=== PATIENT | female | born 1965 | race Caucasian/White ===

== ENCOUNTER 2021-04-03 13:41 | Emergency (ER) | payer OTHER ==
[2021-04-03 13:52] VITALS: BP 174/79; PULSE 80; O2SAT 96
--- NOTE | 2021-04-03 14:19 | ERPHSYRPT ---
- History of Present Illness Time Seen by Provider: 04/03/21 13:55 Source: patient Exam Limitations: no limitations Patient Subjective Stated Complaint: Pt states "I fell a couple weeks ago and I saw Dr. Sullivan and then hoang at ortho and they thought it was just a muscle pull and told me to ice my right leg and it was getting better but this morning it really hurts." Triage Nursing Assessment: Pt presented alert and oriented X 3, skin pwd Pt ambulates with a slow waddling gait, able to speak in clear full sentences pt in no apprent respiratory distress. Pt has pain in her right knee/calf laterally Physician History: Patient is a 56-year-old female presents to our emergency department for evaluation of right knee pain. Patient states she last to me 1 week ago. Patient followed up with her primary care provider. Patient was advised to treat with cold pack and heat pack, conservative management only. No imaging studies were done. Patient is concerned that her symptoms have not resolved. Patient describes the pain to the posterior lateral aspect of the right knee. No history of PE DVT. Pain described as an ache that is localized. No radiation. Pain worse with palpation and weightbearing. Pain improves with rest. Patient has no other complaints concerns this time. Symptoms are mild to moderate in intensity. Method of Injury: fell Occurred: last week Quality: constant Severity of Pain-Max: moderate Severity of Pain-Current: mild Lower Extremities Pain: knee: right Modifying Factors: Improves With: movement Associated Symptoms: none, No dizzy, No fainted, No seizure Allergies/Adverse Reactions: levofloxacin [From Levaquin] Adverse Reaction (Verified 07/28/16 12:45) yeast-nasal and oral Home Medications: Levothyroxine Sodium 112 Mcg [Synthroid 112 Mcg] 150 mcg PO DAILY 08/26/12 [History] Vitamin E 400 Units [Vitamin E 400 UNIT SOFTGEL] 400 unit PO DAILY 05/07/15 [History] Carvedilol 12.5 mg [Coreg 12.5 mg] 25 mg PO BID 07/21/16 [History] Furosemide 40 mg [Lasix 40 MG] 40 mg PO DAILY 04/03/21 [History] Nifedipine Xl 30 mg [Adalat CC 30 MG TABLET] 30 mg PO DAILY 04/03/21 [History] Hx Tetanus, Diphtheria Vaccination/Date Given: No Hx Influenza Vaccination/Date Given: No Hx Pneumococcal Vaccination/Date Given: No Immunizations Up to Date: Yes Travel Risk - International Travel Have you traveled outside of the country in past 3 weeks: No - Coronavirus Screening Are you exhibiting any of the following symptoms?: No Close contact with a COVID-19 positive Pt in past 14-21 Days: No - Vaccine Status Have you recieved a Covid-19 vaccination: Yes Quality Systems Engineer: [employer] - Vaccination Dates Date of 2cond Vaccination (if applicable): - Review of Systems Constitutional: No Symptoms, No Fever, No Chills Eyes: No Symptoms Ears, Nose, & Throat: No Symptoms Respiratory: No Symptoms, No Cough, No Dyspnea Cardiac: No Symptoms, No Chest Pain, No Edema, No Syncope Abdominal/Gastrointestinal: No Symptoms, No Abdominal Pain, No Nausea, No Vomiting, No Diarrhea Genitourinary Symptoms: No Symptoms, No Dysuria Musculoskeletal: No Symptoms, No Back Pain, No Neck Pain Skin: No Symptoms, No Rash Neurological: No Symptoms, No Dizziness, No Focal Weakness, No Sensory Changes Psychological: No Symptoms Endocrine: No Symptoms Hematologic/Lymphatic: No Symptoms Immunological/Allergic: No Symptoms All Other Systems: Reviewed and Negative - Past Medical History Pertinent Past Medical History: Yes Neurological History: Other ENT History: No Pertinent History Cardiac History: Hypertension Respiratory History: Asthma Endocrine Medical History: Hypothyroidism Musculoskeletal History: No Pertinent History GI Medical History: GERD, Irritable Bowel History: No Pertinent History Psycho-Social History: No Pertinent History Female Reproductive Disorders: No Pertinent History Other Medical History: Vertigo, enlarged spleen and liver - Past Surgical History Past Surgical History: Yes Neuro Surgical History: No Pertinent History Cardiac: Cardiac Catheterization Respiratory: No Pertinent History Gastrointestinal: Appendectomy Genitourinary: No Pertinent History Musculoskeletal: No Pertinent History Female Surgical History: Hysterectomy Other Surgical History: TUMOR ON LEG BX - Social History Smoking Status: Former smoker Exposure to second hand smoke: Yes Drug Use: none Patient Lives Alone: No - Female History Hx Last Menstrual Period: hysterectomy Hx Now: No - Nursing Vital Signs Nursing Vital Signs: Initial Vital Signs Temperature 97.0 F 04/03/21 13:45 Pulse Rate 80 04/03/21 13:45 Respiratory Rate 18 04/03/21 13:45 Blood Pressure 174/79 04/03/21 13:45 O2 Sat by Pulse Oximetry 96 04/03/21 13:45 Pain Scale Pain Intensity 2 - Physical Exam General Appearance: no apparent distress, alert Eyes, Ears, Nose, Throat Exam: normal ENT inspection, TMs normal, moist mucous membranes Neck Exam: non-tender, supple Cardiovascular/Respiratory Exam: chest non-tender, normal breath sounds, regular rate/rhythm, no respiratory distress Gastrointestinal/Abdominal Exam: non-tender, soft, No tenderness Back Exam: normal inspection, normal range of motion, No vertebral tenderness Hips Exam: bilateral: non-tender, normal inspection, normal range of motion, no evidence of injury Legs Exam: bilateral leg: non-tender, normal inspection, normal range of motion, no evidence of injury Knees Exam: right knee: soft tissue tenderness, other (Right lower extremity is neurovascular tact distally. Compartments are soft. There is some tenderness a t the posterior lateral aspect of the right knee. No signs of trauma. Range of motion within normal limits. Cap refill less than 2 seconds. Pulses palpable. Extremities warm pink and dry well perfused), left knee: non-tender, normal inspection, normal range of motion Ankle Exam: bilateral ankle: non-tender, normal inspection, normal range of motion, no evidence of injury Foot Exam: bilateral foot: non-tender, normal inspection, normal range of motion, no evidence of injury Neuro/Tendon Exam: normal sensation, normal motor functions Mental Status Exam: alert, oriented x 3, cooperative Skin Exam: normal color, warm, dry SpO2 Interpretation: normal SpO2: 96 O2 Delivery: Room Air - Course Nursing assessment & vital signs reviewed: Yes - Radiology Ultrasound Exam Venous Lower Extremity Ultrasound: discussed w/radiologist (Per specimen technician no DVT right lower extremity.) Ordered Tests: Active Orders 24 hr Category Date Time Status KNEE (1 OR 2 VIEW) Stat Exams 04/03/21 14:05 Taken VENOUS UNILAT/LIMITED EXTREMIT [US] Stat Exams 04/03/21 14:03 Taken - Progress Progress: improved Progress Note: Patient reassessed. Ultrasound negative for DVT. X-ray negative for fracture dislocation. Degenerative arthritis observed. No acute findings observed today. Patient declined pain medication. Will discharge at this time. Patient agrees to follow-up with her primary care doctor within 48 hours for evaluation. She voices no other complaints or concerns at this time. 04/03/21 14:26 04/03/21 14:38 Counseled pt/family regarding: diagnosis, need for follow-up, rad results - Departure Departure Disposition: Home Clinical Impression: Knee pain, Arthritis of knee Condition: Stable Critical Care Time: No Referrals: ELYSIA OMALLEY MD [Primary Care Provider] - Additional Instructions: Discharge/Care Plan KATRIN GRAYSON was seen on 04/03/21 in the Emergency Room. The patient was counseled regarding Diagnosis,Lab results, Imaging studies, need for follow up and when to return to the Emergency Room. Prescriptions given: Discharge Note I have spoken with the patient and/or caregivers. I have explained the patient's condition, diagnosis and treatment plan based on the information available to me at this time. I have answered the patient's and/or caregiver's questions and addressed any concerns. The patient and/or caregivers have as good understanding of the patient's diagnosis, condition and treatment plan as can be expected at this point. The vital signs have been stable. The patient's condition is stable and appropriate for discharge from the emergency department. The patient will pursue further outpatient evaluation with the primary care ph ysician or other designated or consulting physician as outlined in the discharge instructions. The patient and/or caregivers are agreeable to this plan of care and follow-up instructions have been explained in detail. The patient and/or caregivers have received these instruction. The patient/and or caregivers are aware that any significant change in condition or worsening of symptoms should prompt an immediate return to this or the closest emergency department or call 911.
--- NOTE | 2021-04-03 14:52 | XRAY ---
Exam: Two-view right knee series from 04/03/2021. Comparison: Right knee films from 04/13/2012. Indication: Patient fell 4 months ago; rule out fracture. Findings: AP and crosstable lateral images of the right knee were obtained. Abundant soft tissues are seen about the distal right thigh and knee. I see no acute fracture or dislocation. No suprapatellar joint effusion is seen. I believe there is some mild osteoarthritis affecting the patellofemoral joint. There is also mild to moderate narrowing of the medial compartment of the right knee joint space with adjacent osteophyte formation of both sides of the joint. Minimal spurring of the tibial eminences is seen. There is minimal osteophyte formation at the lateral margin of the lateral tibial plateau. There may be slight narrowing of the lateral compartment joint space height. No other focal bone lesion is seen. Impression: 1. No acute right knee fracture, dislocation, or suprapatellar joint effusion is seen. 2. Mild tricompartmental osteoarthritis of the right knee affecting the medial compartment to the greatest extent, followed by the patellofemoral joint.
--- NOTE | 2021-04-03 14:59 | XRAY ---
Exam: Right lower extremity duplex Doppler venous ultrasound exam from 04/03/2021. Comparison: None. Indication: Right leg pain; ? DVT. Technique: Grayscale images, color blood flow images, and Doppler tracings without and with augmentation were obtained throughout the deep veins of the right lower extremity. Findings: Normal transducer compression, color flow imaging, and Doppler signal with augmentation were seen within contracts representative segments of the common femoral vein, proximal, mid, and distal superficial femoral vein, popliteal vein, and distal posterior tibial veins. I also saw normal transducer compression, color flow imaging, and Doppler signal augmentation within the greater saphenous vein of the proximal right thigh near the SFV junction. The profunda femoral vein reveals normal color blood flow and Doppler signal augmentation. Impression: 1. No sonographic or Doppler evidence of deep venous thrombosis is seen within the right lower extremity. 2. Furthermore, there was no evidence of clot within the greater saphenous vein of the proximal right thigh.
== END 2021-04-03 14:40 | disposition home or self-care (01) ==
LOC: ED 13:41
DX: M25.561 Pain in right knee (principal); M17.11 Unilateral primary osteoarthritis, right knee; Z79.899 Other long term (current) drug therapy; I10 Essential (primary) hypertension; E03.9 Hypothyroidism, unspecified
CPT/HCPCS: 73560; 93971; 99283